=== PATIENT | female | born 1990 | race Caucasian/White ===

== ENCOUNTER 2017-08-14 18:09 | Emergency (ER) | payer OTHER ==
[~2017-08-14] VITALS: Ht 165.1 cm; Wt 75.0 kg
[2017-08-14 18:12] VITALS: BP 177/99; PULSE 97; RESP 16; TEMP 98; O2SAT 100
[2017-08-14] MEDS ORDERED: SODIUM CHLOR 0.9% 1000 ML INJ 1,000 ML IV ONE (18:24)
[2017-08-14] MEDS ORDERED: LISI-515 PO (18:25)
[2017-08-14] MEDS ORDERED: cefTRIAXone INJ 1,000 MG in SODIUM CHLORIDE 0.9% INJ 100 ML IV ONE (18:30)
[2017-08-14] MEDS ORDERED: SODIUM CHLORIDE 0.9% FLUSH 10 ML FLUSH IVF PRN (18:30)
--- NOTE | 2017-08-14 18:35 | PD ---
HPI Chief Complaint: Related Problem Time Seen by Provider: 18:16 Travel History International Travel<30 days: No Contact w/Intl Traveler<30days: No Traveled to known affect area: No History of Present Illness HPI Patient is a 26-year-old female who presents to the emergency room about 3-4 weeks with complaints of vaginal bleeding. Patient reports that she just found out she was this week as she missed her period on Thursday; reports that she took multiple tests which were all positive. Patient reports that today, she noticed vaginal bleeding along with increased clot and lower abdominal cramping. Patient reports concern for possible miscarriage. Patient denies any nausea or vomiting, denies any fever chills, patient with no other complaints. PFSH Past Medical History Hypertension: Yes ?: LMP: LAST MONTH Past Surgical History Surgical History: No Previous Surgery Social History Alcohol Use: No Tobacco Use: No Substance Use: No Allergies-Medications (Allergen,Severity, Reaction): Coded Allergies: No Known Allergies (Unverified , 08/14/17) Reported Meds & Prescriptions Reported Meds & Active Scripts Active Reported Lisinopril 20 Mg Tab 20 Mg PO DAILY Review of Systems General / Constitutional: No: Fever Eyes: No: Visual changes HENT: No: Headaches Cardiovascular: No: Chest Pain or Discomfort Respiratory: No: Shortness of Breath Gastrointestinal: No: Abdominal Pain Genitourinary: Positive: Vaginal Bleeding, No: Dysuria Musculoskeletal: No: Pain Skin: No Rash Neurologic: No: Weakness Psychiatric: No: Depression Endocrine: No: Polydipsia Hematologic/Lymphatic: No: Easy Bruising Physical Exam Narrative GENERAL: mild distress SKIN: Focused skin assessment warm/dry. HEAD: Atraumatic. Normocephalic. EYES: Pupils equal and round. No scleral icterus. No injection or drainage. ENT: No nasal bleeding or discharge. Mucous membranes pink and moist. NECK: Trachea midline. No JVD. CARDIOVASCULAR: Regular rate and rhythm. No murmur appreciated. RESPIRATORY: No accessory muscle use. Clear to auscultation. Breath sounds equal bilaterally. GASTROINTESTINAL: Abdomen soft, non-tender, nondistended. Hepatic and splenic margins not palpable. : pelvic exam performed with RN at bedside, patient with moderate about of blood and clot in vaginal vault, no cmt or adnexal tenderness MUSCULOSKELETAL: No obvious deformities. No clubbing. No cyanosis. No edema. NEUROLOGICAL: Awake and alert. No obvious cranial nerve deficits. Motor grossly within normal limits. Normal speech. PSYCHIATRIC: Appropriate mood and affect; insight and judgment normal. Data Data Last Documented VS Vital Signs Date Time Temp Pulse Resp B/P (MAP) Pulse Ox O2 Delivery O2 Flow Rate FiO2 08/14/17 18:12 98.0 97 16 177/99 (125) 100 Orders Orders Beta Hcg (Quant/Titer) (08/14/17 18:24) Complete Blood Count With Diff (08/14/17 18:) Comprehensive Metabolic Panel (08/14/17 18:) Gc And Chlamydia Pcr (08/14/17 18:24) Complete Rh (08/14/17) Type And Screen (08/14/17) Wet Prep Profile (08/14/17:) Urinalysis - C+S If Indicated (08/14/17 18:24) Iv Access Insert/Monitor (08/14/17 18:) Sodium Chloride 0.9% Flush (Ns Flush) (08/14/17 18:30) Sodium Chlor 0.9% 1000 Ml Inj (Ns 1000 M (08/14/17 18:24) Ed Urine Pregnancytest Poc (08/14/17 18:) MDM Medical Decision Making Medical Screen Exam Complete: Yes Emergency Medical Condition: Yes Medical Record Reviewed: Yes Interpretation(s) Vital Signs Date Time Temp Pulse Resp B/P (MAP) Pulse Ox O2 Delivery O2 Flow Rate FiO2 08/14/17 18:12 98.0 97 16 177/99 (125) 100 Differential Diagnosis Miscarriage, threatened miscarriage Narrative Course During the course of the patients emergency department visit, the patients history, examination, and differential diagnosis were reviewed with the patient. The patient was placed on a night monitor with oximetry and frequent blood pressure monitoring. The patient had an IV access obtained and blood work sent for analysis. The patient was initially provided IV fluids. Patient thinks that her first day of her last than menstrual cycle was about a month ago, she is about 3-4 weeks by dates. On vaginal exam, patient with moderate amount of blood and clots with no CMT or adnexal tenderness. Patient unsure what her blood type is, plan to obtain blood work including hCG quant as this will need to be trended. And Rh status will be obtained. Patient understands importance of trending hCG quant as this will need to be repeated in 48 hours. Patient signed out to care doctor of Dr. Pope at change of shift. Rebecca Benitez DO Aug 14, 2017 18:35
[2017-08-14 18:45] LABS: AUTOMATED NEUTROPHIL # 8.3 TH/MM3 (1.8-7.7); BASOPHIL # 0.1 TH/MM3 (0-0.2); BASOPHIL % 0.9 % (0.0-2.0); EOSINOPHIL # 0.1 TH/MM3 (0-0.4); EOSINOPHIL % 0.9 % (0.0-4.0); HEMATOCRIT 40.8 % (35.0-46.0); HEMOGLOBIN 14.1 GM/DL (11.6-15.3); LYMPH % 15.9 % (9.0-44.0); LYMPHOCYTE # 1.7 TH/MM3 (1.0-4.8); MEAN CELL VOLUME 89.9 FL (80.0-100.0); MEAN CORPUSCULAR HEMOGLOBIN 31.2 PG (27.0-34.0); MEAN CORPUSCULAR HGB CONC 34.7 % (32.0-36.0); MEAN PLATELET VOLUME 8.4 FL (7.0-11.0); MONO % 3.6 % (0.0-8.0); MONOCYTE # 0.4 TH/MM3 (0-0.9); NEUT % 78.7 % (16.0-70.0); PLATELET COUNT 264 TH/MM3 (150-450); RED BLOOD COUNT 4.54 MIL/MM3 (4.00-5.30); RED CELL DISTRIBUTION WIDTH 12.3 % (11.6-17.2); WHITE BLOOD COUNT 10.6 TH/MM3 (4.0-11.0)
[2017-08-14 18:48] LABS: CHLORIDE 106 MEQ/L (98-107); SODIUM (NA) 138 MEQ/L (136-145)
[2017-08-14 18:52] LABS: ALBUMIN 3.8 GM/DL (3.4-5.0); BLOOD UREA NITROGEN 9 MG/DL (7-18); GLUCOSE,RANDOM 93 MG/DL (74-106)
[2017-08-14 18:55] LABS: ALT (GPT) 28 U/L (10-53); AST (GOT) 14 U/L (15-37); CREATININE 0.65 MG/DL (0.50-1.00); GLOMERULAR FILTRATION RATE 112 ML/MIN (>89)
[2017-08-14 18:57] LABS: TOTAL BILIRUBIN ADULT 0.2 MG/DL (0.2-1.0); TOTAL PROTEIN 7.2 GM/DL (6.4-8.2)
[2017-08-14 18:58] LABS: ALKALINE PHOSPHATASE 66 U/L (45-117)
[2017-08-14 19:17] LABS: BILIRUBIN, URINE NEG (NEG); BLOOD, URINE LARGE (NEG); GLUCOSE,URINE NEG (NEG); KETONE, URINE TRACE mg/dL (NEG); NITRITE,URINE NEG (NEG); URINE COLOR YELLOW (YELLW/STRAW); URINE LEUKOCYTE ESTERASE NEG (NEG)
[2017-08-14 19:23] LABS: SQUAMOUS EPITHELIAL CELL URINE 0-5 /hpf (0-5)
--- NOTE | 2017-08-14 19:39 | PD ---
Physical Exam Date Seen by Provider: Aug 14, 2017 Narrative Care was assumed at 7 PM pending quantitative hCG and Rh status. This patient is about 5 weeks by dates. She comes in with vaginal bleeding and cramping. She was found to have heavy vaginal bleeding on pelvic exam. Data Data Last Documented VS Vital Signs Date Time Temp Pulse Resp B/P (MAP) Pulse Ox O2 Delivery O2 Flow Rate FiO2 08/14/17 19:41 82 16 153/89 (110) 99 Room Air 08/14/17 18:12 98.0 Orders Orders Beta Hcg (Quant/Titer) (08/14/17 18:24) Complete Blood Count With Diff (08/14/17 18:24) Comprehensive Metabolic Panel (08/14/17 18:24) Gc And Chlamydia Pcr (08/14/17 18:24) Type And Screen (08/14/17 18:24) Wet Prep Profile (08/14/17 18:24) Urinalysis - C+S If Indicated (08/14/17 18:24) Iv Access Insert/Monitor (08/14/17 18:24) Sodium Chloride 0.9% Flush (Ns Flush) (08/14/17 18:30) Sodium Chlor 0.9% 1000 Ml Inj (Ns 1000 M (08/14/17 18:24) Ed Urine Pregnancytest Poc (08/14/17 18:24) Labs Laboratory Tests Test 08/14/17 18:30 08/14/17 19:09 White Blood Count 10.6 TH/MM3 Red Blood Count 4.54 MIL/MM3 Hemoglobin 14.1 GM/DL Hematocrit 40.8 % Mean Corpuscular Volume 89.9 FL Mean Corpuscular Hemoglobin 31.2 PG Mean Corpuscular Hemoglobin Concent 34.7 % Red Cell Distribution Width 12.3 % Platelet Count 264 TH/MM3 Mean Platelet Volume 8.4 FL Neutrophils (%) (Auto) 78.7 % Lymphocytes (%) (Auto) 15.9 % Monocytes (%) (Auto) 3.6 % Eosinophils (%) (Auto) 0.9 % Basophils (%) (Auto) 0.9 % Neutrophils # (Auto) 8.3 TH/MM3 Lymphocytes # (Auto) 1.7 TH/MM3 Monocytes # (Auto) 0.4 TH/MM3 Eosinophils # (Auto) 0.1 TH/MM3 Basophils # (Auto) 0.1 TH/MM3 CBC Comment DIFF FINAL Differential Comment Clue Cells (Wet Prep) NONE SEEN Vaginal Trichomonas (Wet Prep) NONE SEEN Vaginal Yeast (Wet Prep) NONE SEEN Blood Urea Nitrogen 9 MG/DL Creatinine 0.65 MG/DL Random Glucose 93 MG/DL Total Protein 7.2 GM/DL Albumin 3.8 GM/DL Calcium Level 9.0 MG/DL Alkaline Phosphatase 66 U/L Aspartate Amino Transf (AST/SGOT) 14 U/L Alanine Aminotransferase (ALT/SGPT) 28 U/L Total Bilirubin 0.2 MG/DL Sodium Level 138 MEQ/L Potassium Level 3.4 MEQ/L Chloride Level 106 MEQ/L Carbon Dioxide Level 24.0 MEQ/L Anion Gap 8 MEQ/L Estimat Glomerular Filtration Rate 112 ML/MIN Human Chorionic Gonadotropin, Quant 4505 MIU/ML Urine Color YELLOW Urine Turbidity CLEAR Urine pH 6.0 Urine Specific [place] 1.015 Urine Protein NEG mg/dL Urine Glucose (UA) NEG mg/dL Urine Ketones TRACE mg/dL Urine Occult Blood LARGE Urine Nitrite NEG Urine Bilirubin NEG Urine Urobilinogen 0.2 MG/DL Urine Leukocyte Esterase NEG Urine RBC 20-24 /hpf Urine Squamous Epithelial Cells 0-5 /hpf Microscopic Urinalysis Comment CULT NOT INDICATED MDM Supervised Visit with MEAGHAN: No Differential Diagnosis Differential diagnosis of bleeding in includes but is not limited to physiologic bleeding, spontaneous AB, ectopic , placenta previa Narrative Course This patient presents for the evaluation of heavy bleeding and pelvic cramping in early . CBC & BMP Diagram 08/14/17 18:30 Total Protein 7.2, Albumin 3.8, Calcium Level 9.0, Alkaline Phosphatase 66, Aspartate Amino Transf (AST/SGOT) 14 L, Alanine Aminotransferase (ALT/SGPT) 28, Total Bilirubin 0.2 Quantitative hCG 4505 UA just shows blood. Wet prep is negative. Blood type A+ Diagnosis Primary Impression: Bleeding in early Patient Instructions: General Instructions, Threatened Miscarriage (DC) Additional Instruction: Follow-up in 2 days to have your blood test rechecked. Your level today is 4505. Disposition: 01 DISCHARGE HOME Condition: Stable Sheri Pope MD Aug 14, 2017 19:39
[2017-08-14 19:41] VITALS: BP 153/89; PULSE 82; RESP 16; O2SAT 99
== END 2017-08-14 20:36 | disposition home or self-care (01) ==
LOC: PHED 18:09
DX: O20.9 Hemorrhage in early pregnancy, unspecified (principal); Z3A.01 Less than 8 weeks gestation of pregnancy; Z79.899 Other long term (current) drug therapy
CPT/HCPCS: 80053; 81001; 84702; 84703; 85025; 86850; 86900; 86901; 87210; 87491; 87591; 96360; 99284; J7030

== ENCOUNTER 2017-08-16 17:20 | Emergency (ER) | payer OTHER ==
[~2017-08-16] VITALS: Ht 165.1 cm; Wt 76.0 kg
[~2017-08-16 17:20] MED LIST: LISI-515 PO
[2017-08-16 17:28] VITALS: BP 158/90; PULSE 107; RESP 16; TEMP 98.6; O2SAT 99
--- NOTE | 2017-08-16 18:12 | PD ---
HPI Chief Complaint: Related Problem Time Seen by Provider: 17:52 Travel History International Travel<30 days: No Contact w/Intl Traveler<30days: No Traveled to known affect area: No History of Present Illness HPI Patient presents to the emergency department for repeat beta hCG. Came in to the ER Thursday was found to be with vaginal bleeding. Her hCG was 2004. To return to the ER for repeat beta. Reporting some lower abdominal cramping and that the bleeding has improved. Using approximately 2 pads daily. She denies fever, nausea, vomiting, chest pain, shortness of breath, dizziness. Does report chills and feeling weak. Menstrual period was July 14. PFSH Past Medical History Cardiovascular Problems: Yes (htn on meds) Hypertension: Yes Integumentary: Yes (cyst removal from neck) Influenza Vaccination: No ?: LMP: 07/14/17? Social History Alcohol Use: No Tobacco Use: No Substance Use: No Allergies-Medications (Allergen,Severity, Reaction): Coded Allergies: No Known Allergies (Unverified , 08/16/17) Reported Meds & Prescriptions Reported Meds & Active Scripts Active Reported Lisinopril 20 Mg Tab 20 Mg PO DAILY Review of Systems Except as stated in HPI: all other systems reviewed are Neg Physical Exam Narrative GENERAL: No acute distress. SKIN: Focused skin assessment warm/dry. HEAD: Atraumatic. Normocephalic. EYES: Pupils equal and round. No scleral icterus. No injection or drainage. ENT: No nasal bleeding or discharge. Mucous membranes pink and moist. NECK: Trachea midline. No JVD. CARDIOVASCULAR: Regular rate and rhythm. No murmur appreciated. RESPIRATORY: No accessory muscle use. Clear to auscultation. Breath sounds equal bilaterally. GASTROINTESTINAL: Abdomen soft, non-tender, nondistended. Hepatic and splenic margins not palpable. MUSCULOSKELETAL: No obvious deformities. No clubbing. No cyanosis. No edema. NEUROLOGICAL: Awake and alert. No obvious cranial nerve deficits. Motor grossly within normal limits. Normal speech. PSYCHIATRIC: Appropriate mood and affect; insight and judgment normal. Pelvic: Cervical os closed to fingertip, white discharge and minimal blood present, Data Data Last Documented VS Vital Signs Date Time Temp Pulse Resp B/P (MAP) Pulse Ox O2 Delivery O2 Flow Rate FiO2 08/16/17 17:28 98.6 107 16 158/90 (112) 99 Orders Orders Beta Hcg (Quant/Titer) (08/16/17 17:46) Complete Blood Count With Diff (08/16/17 17:46) Us Pelvis (Ques Pr/Ect)W Trans (08/16/17 ) Sodium Chlor 0.9% 1000 Ml Inj (Ns 1000 M (08/16/17 18:15) Prothrombin Time / Inr (Pt) (08/16/17 18:02) Act Partial Throm Time (Ptt) (08/16/17 18:02) Iv Access Insert/Monitor (08/16/17 18:02) Ecg Monitoring (08/16/17 18:02) Labs Laboratory Tests Test 08/16/17 18:18 White Blood Count 11.0 TH/MM3 Red Blood Count 4.46 MIL/MM3 Hemoglobin 13.7 GM/DL Hematocrit 40.5 % Mean Corpuscular Volume 90.9 FL Mean Corpuscular Hemoglobin 30.8 PG Mean Corpuscular Hemoglobin Concent 33.9 % Red Cell Distribution Width 12.3 % Platelet Count 258 TH/MM3 Mean Platelet Volume 8.6 FL Neutrophils (%) (Auto) 78.4 % Lymphocytes (%) (Auto) 15.1 % Monocytes (%) (Auto) 3.7 % Eosinophils (%) (Auto) 1.6 % Basophils (%) (Auto) 1.2 % Neutrophils # (Auto) 8.6 TH/MM3 Lymphocytes # (Auto) 1.7 TH/MM3 Monocytes # (Auto) 0.4 TH/MM3 Eosinophils # (Auto) 0.2 TH/MM3 Basophils # (Auto) 0.1 TH/MM3 CBC Comment DIFF FINAL Differential Comment Prothrombin Time 10.2 SEC Prothromb Time International Ratio 1.0 RATIO Activated Partial Thromboplast Time 25.4 SEC MDM Medical Decision Making Medical Screen Exam Complete: Yes Emergency Medical Condition: Yes Interpretation(s) Labs: Normal cbc, coags Differential Diagnosis IUP, AB, ectopic Narrative Course She presents to the emergency department with vaginal bleeding and . Since to have repeat beta hCG. Patient placed on a school lunch monitor, IV access obtained, and labs/ultrasound ordered. She is also given 1 L IV normal saline secondary to tachycardia at 107. 1852: HR 93. Awaiting beta HCG and u/s. Patient will be signed out to oncoming attending, Dr. Pack. Deedee Baig MD Aug 16, 2017 18:12
[2017-08-16] MEDS ORDERED: SODIUM CHLOR 0.9% 1000 ML INJ 1,000 ML IV ONE (18:15)
[2017-08-16 18:29] LABS: AUTOMATED NEUTROPHIL # 8.6 TH/MM3 (1.8-7.7); BASOPHIL # 0.1 TH/MM3 (0-0.2); BASOPHIL % 1.2 % (0.0-2.0); EOSINOPHIL # 0.2 TH/MM3 (0-0.4); EOSINOPHIL % 1.6 % (0.0-4.0); HEMATOCRIT 40.5 % (35.0-46.0); HEMOGLOBIN 13.7 GM/DL (11.6-15.3); LYMPH % 15.1 % (9.0-44.0); LYMPHOCYTE # 1.7 TH/MM3 (1.0-4.8); MEAN CELL VOLUME 90.9 FL (80.0-100.0); MEAN CORPUSCULAR HEMOGLOBIN 30.8 PG (27.0-34.0); MEAN CORPUSCULAR HGB CONC 33.9 % (32.0-36.0); MEAN PLATELET VOLUME 8.6 FL (7.0-11.0); MONO % 3.7 % (0.0-8.0); MONOCYTE # 0.4 TH/MM3 (0-0.9); NEUT % 78.4 % (16.0-70.0); PLATELET COUNT 258 TH/MM3 (150-450); RED BLOOD COUNT 4.46 MIL/MM3 (4.00-5.30); RED CELL DISTRIBUTION WIDTH 12.3 % (11.6-17.2)
[2017-08-16 18:44] LABS: PROTHROMBIN TIME - PATIENT 10.2 SEC (9.8-11.6)
[2017-08-16 19:28] VITALS: BP 132/79; PULSE 90; RESP 18; O2SAT 98
--- NOTE | 2017-08-16 20:45 | RADRPT ---
EXAM DATE: 08/16/2017 8:22 PM EDT AGE/SEX: 26 years / Female INDICATIONS: Pelvic pain. CLINICAL DATA: This is the patient's initial encounter. Patient reports that signs and symptoms have been present for 3 days and indicates a pain score of 3/10. MEDICAL/SURGICAL HISTORY: Hypertension. . COMPARISON: No prior exams available for comparison. TECHNIQUE: Real-time ultrasound of the pelvis was performed using an endovaginal transducer. BHC,240 MEASUREMENTS: Uterus:__6.7 x 5.8 x 3.9 cm Endometrial Stripe:__9 mm Right Ovary:__ 3.5 x 3.0 x 2.3 cm Left Ovary:__ 3.8 x 3.0 x 1.4 cm FINDINGS: A gestational sac and yolk sac are seen but no pole is visualized. Gestational age should be 5 weeks 0 days by gestational sac size. Right ovary has complex cyst measuring up to 3.2 x 2.5 x 1.7 cm . Left ovary unremarkable. CONCLUSION: 1. Positive gestational sac and yolk sac without pole identified. Gestational age 5 weeks by g estational sac size. Electronically signed by: Tomy Vela MD 08/16/2017 8:43 PM EDT
--- NOTE | 2017-08-16 20:55 | PD ---
Data Data Last Documented VS Vital Signs Date Time Temp Pulse Resp B/P (MAP) Pulse Ox O2 Delivery O2 Flow Rate FiO2 08/16/17 19:28 90 18 132/79 (96) 98 Room Air 08/16/17 17:28 98.6 Orders Orders Beta Hcg (Quant/Titer) (08/16/17 17:46) Complete Blood Count With Diff (08/16/17 17:46) Us Pelvis (Ques Pr/Ect)W Trans (08/16/17 ) Sodium Chlor 0.9% 1000 Ml Inj (Ns 1000 M (08/16/17 18:15) Prothrombin Time / Inr (Pt) (08/16/17 18:02) Act Partial Throm Time (Ptt) (08/16/17 18:02) Iv Access Insert/Monitor (08/16/17 18:02) Ecg Monitoring (08/16/17 18:02) Labs Laboratory Tests Test 08/16/17 18:18 White Blood Count 11.0 TH/MM3 Red Blood Count 4.46 MIL/MM3 Hemoglobin 13.7 GM/DL Hematocrit 40.5 % Mean Corpuscular Volume 90.9 FL Mean Corpuscular Hemoglobin 30.8 PG Mean Corpuscular Hemoglobin Concent 33.9 % Red Cell Distribution Width 12.3 % Platelet Count 258 TH/MM3 Mean Platelet Volume 8.6 FL Neutrophils (%) (Auto) 78.4 % Lymphocytes (%) (Auto) 15.1 % Monocytes (%) (Auto) 3.7 % Eosinophils (%) (Auto) 1.6 % Basophils (%) (Auto) 1.2 % Neutrophils # (Auto) 8.6 TH/MM3 Lymphocytes # (Auto) 1.7 TH/MM3 Monocytes # (Auto) 0.4 TH/MM3 Eosinophils # (Auto) 0.2 TH/MM3 Basophils # (Auto) 0.1 TH/MM3 CBC Comment DIFF FINAL Differential Comment Prothrombin Time 10.2 SEC Prothromb Time International Ratio 1.0 RATIO Activated Partial Thromboplast Time 25.4 SEC Human Chorionic Gonadotropin, Quant 9240 MIU/ML [facility] Supervised Visit with MEAGHAN: No Narrative Course This is a 26-year-old female who presents to the emergency department in early with some vaginal bleeding. HCG has doubled in the past 2 days and ultrasound confirms a gestational sac of about 5 weeks and a yolk sac with no pole. I think patient is safe to follow-up with her terminal clerk as an outpatient. Diagnosis Primary Impression: Intrauterine Patient Instructions: General Instructions Additional Instruction: You have been diagnosed with a threatened miscarriage. Many women who have vaginal bleeding in early go on to have normal pregnancies. However some women that have vaginal bleeding will have a miscarriage and it is important to followup with your terminal clerk. If you develop severe abdominal pain, fever, persistent vomiting or inability to eat, heavy vaginal bleeding using more than one pad an hour, lightheadedness , dizziness, chest pain or shortness of breath return to the emergency department immediately. Followup with your terminal clerk as soon as possible. Take Tylenol as needed for pain. Med/Other Pt SpecificInfo: No Change to Meds Disposition: 01 DISCHARGE HOME Condition: Stable Joelle Pack MD Aug 16, 2017 20:55
[2017-08-16] MEDS ORDERED: PREN1TAB63 PO (21:05)
[2017-08-16 21:22] VITALS: BP 134/76; PULSE 82; RESP 18; O2SAT 98
== END 2017-08-16 21:24 | disposition home or self-care (01) ==
LOC: PHED 17:20
DX: O20.0 Threatened abortion (principal); O16.1 Unspecified maternal hypertension, first trimester; Z3A.01 Less than 8 weeks gestation of pregnancy
CPT/HCPCS: 76700; 76817; 84702; 85025; 85610; 85730; 96360; 99284; J7030

== ENCOUNTER 2018-04-07 10:24 | Inpatient (IN) ==
[2018-04-07] MEDS ORDERED: Oxytocin 30 Units/500ml Premix 30 UNITS/500 ML BAG IV.SIG ONE (11:06)
[2018-04-07] MEDS ORDERED: Penicillin G Potassium Inj 5,000,000 UNIT in Sodium Chloride 0.9% Inj 100 ML IV.SIG ONE (11:06)
[2018-04-07] MEDS ORDERED: Sodium Chlor 0.9% Inj 500 ML IV.SIG PRN (11:06)
[2018-04-07] MEDS ORDERED: Naloxone Inj 0.4 MG/ML Vial IV.PUSH PRN (11:06)
[2018-04-07] MEDS ORDERED: fentaNYL Citrate Inj 100 MCG/2 ML Ampul IV.PUSH PRN (11:06)
[2018-04-07] MEDS ORDERED: Sod Chloride 0.9% Inj 1,000 ML IV.CONT PRN (11:06)
[2018-04-07] MEDS ORDERED: Sod Chloride 0.9% Inj 1,000 ML IRRIGATION SCH (11:15)
[2018-04-07] MEDS ORDERED: Citric Acid/Sodium Citrate Liq 30 ML UDC PO SCH (11:15)
[2018-04-07] MEDS ORDERED: Penicillin G Potassium Inj 2,500,000 UNIT in Sodium Chlor 0.9% Inj 100 ML IV.SIG SCH (12:00)
[2018-04-07 12:04] LABS: Baso % (Auto) 0.2 % (0.0-2.0); Eos % (Auto) 0.3 % (0.0-4.0); Hematocrit 40.7 % (35.0-46.0); Hemoglobin 13.7 gm/dL (11.6-15.3); Lymph # (Auto) 1.4 th/mm3 (1.0-4.8); Lymph % (Auto) 12.2 % (9.0-44.0); Mean Corpuscular HGB Conc 33.6 % (32.0-36.0); Mean Corpuscular Hemoglobin 30.2 pg (27.0-34.0); Mean Corpuscular Volume 89.7 fL (80.0-100.0); Mono # (Auto) 0.6 th/mm3 (0.0-0.9); Mono % (Auto) 5.7 % (0.0-8.0); Neut # (Auto) 9.1 th/mm3 (1.8-7.7); Neut % (Auto) 81.6 % (16.0-70.0); Platelet Count 230 th/mm3 (150-450); Red Blood Count 4.53 mil/mm3 (4.00-5.30); Red Cell Distribution Width 13.8 % (11.6-17.2); White Blood Count 11.1 th/mm3 (4.0-11.0)
[2018-04-07 12:20] LABS: Alanine Aminotransferase 22 U/L (10-53); Albumin 2.8 g/dL (3.4-5.0); Anion Gap 11 meq/L (5-15); Aspartate Aminotransferase 17 U/L (15-37); Blood Urea Nitrogen 8 mg/dL (7-18); Calcium 9.2 mg/dL (8.5-10.1); Carbon Dioxide 21.9 meq/L (21.0-32.0); Chloride 106 meq/L (98-107); Glomerular Filtration Rate Greater Than 89 mL/min (>89); Glucose,Random 78 mg/dL (74-106); Potassium 4.1 meq/L (3.5-5.1); Sodium 139 meq/L (136-145); Uric Acid 3.9 mg/dl (2.6-6.0)
[2018-04-07 12:23] LABS: Alkaline Phosphatase 221 U/L (45-117)
[2018-04-07 12:36] LABS: Bacteria,Urine Occasional /hpf; Bilirubin,Urine Negative (Negative); Clarity,Urine Clear (Clear); Color,Urine Straw (Yellw/Straw); Glucose,Urine (UA) Negative (Negative); Leukocyte Esterase,Urine Negative (Negative); Mucus,Urine Few /lpf (Occasional); Nitrite,Urine Negative (Negative); Protein/Creatinine Ratio,Urine 0.42 (0.00-0.14); Specific Gravity,Urine 1.005 (1.002-1.035); Squamous Epithelial Cell,Urine 8 /hpf (0-5); Total Protein,Urine Random 15.9 mg/dL (0-11.8)
--- NOTE | 2018-04-07 14:31 | P.HPOB ---
History of Present Illness Service: ob Primary Care Physician: No Primary Care Physician Chief Complaint: iol for justina History of Present Illness: 27 yo G1 with iup at 39 wk by 11 wk u/s (not c/w lmp) being admitted for iol for justina. She transferred care from [facility] to [facility] at 20 weeks[address] has seen [address] Arriola for majority of her care. c/b CHTN, prior aldomet use, LSIL, Morbid obesity. She presented for a routine OB visit and was noted to have BP of 150/100, 160/ 100, subsequent repeat was 138/84. Discussed risk of pre-eclampsia and indication for delivery today. She denies visual changes, headaches, or ruq pain. Has taken bp at home and was normal. Sh ehas good movements, no reg contractions, no lof/vb. She has gained 56 pounds from pre- weight. 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 This includes certification that hospital inpatient services are reasonable and necessary and in the case of services not specified as inpatient-only under 42 CFR 419.22(n), that they are appropriately provided as inpatient services in accordance to with the 2-midnight benchmark under 43 CFR 412.3(e) Estimated Total Length of Stay (Days): 3 Plans for Post Hospital Care: Home Review of Systems All other systems reviewed negative except as stated [facility] - Social History I have reviewed the patient's Social History: Yes - Tobacco History Second Hand Smoke Exposure: No Tobacco Use In Past 30 Days: No Smoking Status: Never smoker - Travel History Recent Travel in the [place] Within the Last 8 Weeks: No Recent Travel Out of the Country Within the Last 8 Weeks: No - Immunization History Tetanus Immunization: Unable to Assess Hx Influenza Vaccine This Season: Yes Medications and Allergies Active Medications: Active Medications Citric Acid/Sodium Citrate (Sodium Citrate/Citric Acid Liq) 30 ml PO EXPORT ADMINISTRATOR [facility] Stop: 04/11/18 11:14 Fentanyl Citrate (Fentanyl Inj) 50 mcg IV.PUSH Q1H PRN PRN Reason: Pain Scale 3 - 5 Fentanyl Citrate (Fentanyl Inj) 100 mcg IV.PUSH Q1H PRN PRN Reason: PAIN SCALE 6 TO 10 Lactated Ringer's (Lr 1000 Ml Inj) 1,000 mls @ 125 mls/hr IV.CONT .Q8H ROBERTA Lactated Ringer's (Lr 1000 Ml Inj) 1,000 mls @ 3,000 mls/hr IV.SIG UNSCH PRN PRN Reason: compromise or epidural Sodium Chloride (Ns Inj) 500 mls @ 1,000 mls/hr IV.SIG UNSCH PRN PRN Reason: SEE LABEL COMMENTS Sodium Chloride (Ns Inj) 1,000 mls @ 100 mls/hr IV.CONT .Q10H PRN PRN Reason: SEE LABEL COMMENTS Sodium Chloride (Ns Inj) 1,000 mls @ 0 mls/hr IRRIGATION .Q0M ROBERTA Stop: 04/08/18 11:14 Penicillin G Potassium 2,500, (000 unit/ Sodium Chloride) 100 mls @ 200 mls/hr IV.SIG Q4H ROBERTA Lidocaine HCl (Xylocaine 1% Inj) 0.1 ml I-DERMAL PRN PRN PRN Reason: For IV start Stop: 04/10/18 11:05 Lidocaine HCl (Xylocaine 1% Inj) 10 ml INFILTRATN PRN PRN PRN Reason: For episiotomy repair Stop: 04/09/18 11:05 Mineral Oil (Muri-Lube Oil) 10 ml TOPICAL PRN PRN PRN Reason: PRN perineal massage Naloxone HCl (Narcan Inj) 0.1 mg IV.PUSH Q2M PRN PRN Reason: for opiate reversal Sodium Chloride (Ns Flush) 2 ml IV.FLUSH BID [facility] Sodium Chloride (Ns Flush) 2 ml IV.FLUSH PRN PRN PRN Reason: FLUSH AFTER USING IV ACCESS Allergies Allergy/AdvReac Type Severity Reaction Status Date / Time No Known Allergies Allergy Unverified 04/07/18 12:05 Home Medications Medication Instructions Recorded Confirmed Type PNV cmb#[id number] fumarate-FA 1 tab PO DAILY 04/07/18 04/07/18 History [] Exam Vital signs: Vital Signs 04/07/18 10:53 04/07/18 11:15 04/07/18 13:08 Temperature 98.1 F Pulse Rate 95 H Respiratory Rate 18 18 Blood Pressure 155/106 H 152/95 H 04/07/18 13:15 04/07/18 13:52 Temperature Pulse Rate 18 L 83 Respiratory Rate 18 Blood Pressure 152/92 H Intake & Output 04/06/18 04/07/18 04/07/18 18:59 06:59 18:59 Weight 97.522 kg Other: Weight On Admission 97.522 kg - Constitutional no acute distress - Routine HEENT Exam Head: Present: normocephalic Eye: Present: EOMI ENT: Present: mucous membranes moist - Routine Neck Exam Present: supple, full ROM - Routine Chest/Breast/Axilla Exam Chest wall: Absent: tenderness - Routine Respiratory Exam Present: CTA bilaterally. Absent: accessory muscle use - Routine Cardiovascular Exam Present: RRR, S1, S2 - Routine Abdominal Exam Present: soft Comments: fundal height 42 - Routine Exam Comments: /3 - Routine Extremities Exam Present: edema, pulses intact. Absent: cyanosis, clubbing - Routine Skin Exam Present: intact - Routine Neurological Exam Present: alert, oriented X3 Results - Labs CBC & Chem 7: 04/07/18 11:30 04/07/18 11:30 Labs: Laboratory Results - last 24 hr 04/07/18 04/07/18 04/07/18 11:30 11:30 11:30 WBC 11.1 H RBC 4.53 Hgb 13.7 Hct 40.7 MCV 89.7 MCH 30.2 MCHC 33.6 RDW 13.8 Plt Count 230 MPV 10.0 Neut % (Auto) 81.6 H Lymph % (Auto) 12.2 Yancey % (Auto) 5.7 Eos % (Auto) 0.3 Baso % (Auto) 0.2 Neut # (Auto) 9.1 H Lymph # (Auto) 1.4 Yancey # (Auto) 0.6 Eos # (Auto) 0.0 Baso # (Auto) 0.0 WBC Differential . Differential Comment Auto diff final Sodium 139 Potassium 4.1 Chloride 106 Carbon Dioxide 21.9 Anion Gap 11 BUN 8 Creatinine 0.63 Estimated GFR Greater than 89 Random Glucose 78 Uric Acid 3.9 Calcium 9.2 Total Bilirubin 0.3 AST 17 ALT 22 Alkaline Phosphatase 221 H Total Protein 7.0 Albumin 2.8 L Urine Color Urine Clarity Urine pH Ur Specific Clarinda Urine Protein Urine Glucose (UA) Urine Ketones Urine Occult Blood Urine Nitrate Urine Bilirubin Urine Urobilinogen Ur Leukocyte Esterase Urine RBC Urine WBC Ur Squamous Epith Cells Urine Bacteria Urine Mucus Micro UA Comment Ur Microscopic Review Urine Culture Comments Ur Random Creatinine U Random Total Protein Protein/Creatinin Ratio Blood Type A Positive 04/07/18 04/07/18 11:30 11:30 WBC RBC Hgb Hct MCV MCH MCHC RDW Plt Count MPV Neut % (Auto) Lymph % (Auto) Yancey % (Auto) Eos % (Auto) Baso % (Auto) Neut # (Auto) Lymph # (Auto) Yancey # (Auto) Eos # (Auto) Baso # (Auto) WBC Differential Differential Comment Sodium Potassium Chloride Carbon Dioxide Anion Gap BUN Creatinine Estimated GFR Random Glucose Uric Acid Calcium Total Bilirubin AST ALT Alkaline Phosphatase Total Protein Albumin Urine Color Straw Urine Clarity Clear Urine pH 7.0 Ur Specific Clarinda 1.005 Urine Protein Negative Urine Glucose (UA) Negative Urine Ketones Negative Urine Occult Blood Small H Urine Nitrate Negative Urine Bilirubin Negative Urine Urobilinogen Less than 2 Ur Leukocyte Esterase Negative Urine RBC Less than 1 Urine WBC 1 Ur Squamous Epith Cells 8 Urine Bacteria Occasional H Urine Mucus Few H Micro UA Comment Culture not ind Ur Microscopic Review Not Reportable Urine Culture Comments Culture not ind Ur Random Creatinine 38 U Random Total Protein 15.9 H Protein/Creatinin Ratio 0.42 H Blood Type Group B Strep: Positive Caprini VTE Risk Assessment Caprini VTE Risk Assessment: No/Low Risk (score <= 1) Caprini Risk Assessment Model: Point Value = 1 Point Value = 2 Point Value = 3 Point Value = 5 Age 41-60 Minor surgery BMI > 25 kg/m2 Swollen legs Varicose veins or History of unexplained or recurrent spontaneous Oral contraceptives or hormone replacement Sepsis (< 1 month) Serious lung disease, including pneumonia (< 1 month) Abnormal pulmonary function Acute myocardial infarction Congestive heart failure (< 1 month) History of inflammatory bowel disease Medical patient at bed rest Age 61-74 Arthroscopic surgery Major open surgery (> 45 min) Laparoscopic surgery (> 45 min) Malignancy Confined to bed (> 72 hours) Immobilizing plaster cast Central venous access Age >= 75 History of VTE Family history of VTE Factor V Leiden Prothrombin [id number] Lupus anticoagulant Anticardiolipin antibodies Elevated serum homocysteine Heparin-induced thrombocytopenia Other congenital or acquired thrombophilia Stroke (< 1 month) Elective arthroplasty Hip, pelvis, or leg fracture Acute spinal cord injury (< 1 month) Prophylaxis Regimen: Total Risk Factor Score Risk Level Prophylaxis Regimen 0-1 Low Early ambulation 2 Moderate Order ONE of the following: *Sequential Compression Device (SCD) *Heparin 5000 units SQ BID 3-4 Higher Order ONE of the following medications: *Heparin 5000 units SQ TID *Enoxaparin/Lovenox 40 mg SQ daily (WT < 150 kg, CrCl > 30 mL/min) *Enoxaparin/Lovenox 30 mg SQ daily (WT < 150 kg, CrCl > 10-29 mL/min) *Enoxaparin/Lovenox 30 mg SQ BID (WT < 150 kg, CrCl > 30 mL/min) AND/OR *Sequential Compression Device (SCD) 5 or more Highest Order ONE of the following medications: *Heparin 5000 units SQ TID (Preferred with Epidurals) *Enoxaparin/Lovenox 40 mg SQ daily (WT < 150 kg, CrCl > 30 mL/min) *Enoxaparin/Lovenox 30 mg SQ daily (WT < 150 kg, CrCl > 10-29 mL/min) *Enoxaparin/Lovenox 30 mg SQ BID (WT < 150 kg, CrCl > 30 mL/min) AND *Sequential Compression Device (SCD) Assessment and Plan - Diagnosis (1) Pre-eclampsia superimposed on chronic hypertension Code(s): O11.9 - Pre-existing hypertension with pre-eclampsia, unspecified trimester Status: Acute (2) Obesity (BMI 35.0-39.9 without comorbidity) Code(s): E66.9 - Obesity, unspecified Status: Acute (3) Rubella non-immune status, antepartum Code(s): O99.89 - Other specified diseases and conditions complicating , childbirth and the puerperium; Z28.3 - Underimmunization status Status: Acute (4) GBS (group B Streptococcus carrier), +RV culture, currently Code(s): O99.820 - Streptococcus B carrier state complicating Status : Acute (5) LGSIL on Pap smear of cervix Code(s): R87.612 - Low grade squamous intraepithelial lesion on cytologic smear of cervix (LGSIL) Status: Acute - Plan 27 yo G1 with iup at 39 wk by 11 wk u/s being admitted for iol 1) IOL- pt aware that induction can be a long process. IF there is any distress, arrest of dilation or descent, or any signs of severity from justina that would necessitate immediate delivery, she would need a cd. will start iol with cervidil. 2) JUSTINA- elevated bp, Pr:Cr 0.4 rules her in for chtn with justina. If signs of severity develop, will need to start magnesium 3) GBS + pcn during active labor 4) Fetus- male, cephalic, approx 8-8.5 lb by shaw, no recent growth scan. Shoulder dystocia precautions. Discharge Planning: home on ppd 2-3
[2018-04-07] MEDS: Penicillin G Potassium Inj 2,500,000 UNIT in Sodium Chlor 0.9% Inj 100 ML IV.SIG SCH (23:32)
[2018-04-08] MEDS: fentaNYL Citrate Inj 100 MCG/2 ML Ampul IV.PUSH PRN ×2 (00:49→04:56)
[2018-04-08] MEDS: Penicillin G Potassium Inj 2,500,000 UNIT in Sodium Chlor 0.9% Inj 100 ML IV.SIG SCH ×3 (03:40→11:27)
[2018-04-08] MEDS ORDERED: fentaNYL 2MCG-Bupiv 0.125% Epi 150 ML EPIDURAL ONE (07:16)
[2018-04-08] MEDS ORDERED: fentaNYL 2MCG-Bupiv 0.125% Epi 150 ML EPIDURAL PRN (08:17)
[2018-04-08] MEDS ORDERED: fentaNYL Citrate Inj 100 MCG/2 ML Ampul EPIDURAL ONE (08:17)
[2018-04-08] MEDS ORDERED: Sodium Chlor 0.9% Inj 10 ML ONE (09:59)
[2018-04-08] MEDS ORDERED: Oxytocin 30 Units/500ml Premix 30 UNITS/500 ML BAG ONE ×2 (09:59→10:17)
[2018-04-08] MEDS ORDERED: Lidocaine PF 1% Inj 5 ML Vial ONE (09:59)
--- NOTE | 2018-04-08 10:01 | P.OBLABOR ---
Subjective Interval history: comfortable with epidural BPs good srom at 430 am Objective Vital Signs: Vital Signs - 8 hr 04/08/18 02:25 04/08/18 02:55 04/08/18 03:01 Temperature Pulse Rate 85 82 Respiratory Rate 16 16 Blood Pressure 149/73 H 133/69 04/08/18 03:25 04/08/18 03:50 04/08/18 04:25 Temperature 98.1 F Pulse Rate 84 Respiratory Rate 16 16 16 Blood Pressure 137/77 04/08/18 04:53 04/08/18 05:24 04/08/18 05:52 Temperature Pulse Rate 97 H Respiratory Rate 16 16 16 Blood Pressure 156/90 H 04/08/18 06:25 04/08/18 06:48 04/08/18 07:40 Temperature Pulse Rate 110 H Respiratory Rate 16 16 Blood Pressure 149/79 H 04/08/18 07:45 04/08/18 07:47 04/08/18 07:50 Temperature 98.5 F Pulse Rate 91 H 96 H Respiratory Rate 18 Blood Pressure 160/89 H 04/08/18 07:51 04/08/18 07:55 04/08/18 08:01 Temperature Pulse Rate 96 H 93 H 84 Respiratory Rate Blood Pressure 150/73 H 147/76 H 140/73 04/08/18 08:05 Temperature Pulse Rate 84 Respiratory Rate Blood Pressure Objective: Pelvic Exam: strip category one /-1 pelvix clinically adequate EFW 7 pounds Patient Started Active Labor: Yes Medical Induction of Labor: Yes Artificial Rupture of Membrane: No Assessment and Plan - Diagnosis (1) Pre-eclampsia superimposed on chronic hypertension Code(s): O11.9 - Pre-existing hypertension with pre-eclampsia, unspecified trimester Status: Acute (2) Obesity (BMI 35.0-39.9 without comorbidity) Code(s): E66.9 - Obesity, unspecified Status: Acute (3) Rubella non-immune status, antepartum Code(s): O99.89 - Other specified diseases and conditions complicating , childbirth and the puerperium; Z28.3 - Underimmunization status Status: Acute (4) GBS (group B Streptococcus carrier), +RV culture, currently Code(s): O99.820 - Streptococcus B carrier state complicating Status : Acute (5) LGSIL on Pap smear of cervix Code(s): R87.612 - Low grade squamous intraepithelial lesion on cytologic smear of cervix (LGSIL) Status: Acute - Plan 27 yo G1 with iup at 39 wk by 11 wk u/s being admitted for iol 1) IOL- pt aware that induction can be a long process. IF there is any distress, arrest of dilation or descent, or any signs of severity from justina that would necessitate immediate delivery, she would need a cd. will start iol with cervidil. 2) JUSTINA- elevated bp, Pr:Cr 0.4 rules her in for chtn with justina. If signs of severity develop, will need to start magnesium 3) GBS + pcn during active labor 4) Fetus- male, cephalic, approx 8-8.5 lb by shaw, no recent growth scan. Shoulder dystocia precautions. Discharge Planning: home on ppd 2-3
--- NOTE | 2018-04-08 14:47 | P.OBDELI ---
Patient Started Active Labor: Yes Medical Induction of Labor: Yes Artificial Rupture of Membrane: No Anesthesia: Epidural Episiotomy: none Vaginal Delivery: Normal, Vacuum (tachycardia) Presentation: Occiput anterior Nuchal Cord: None Delayed Cord Clamping (45 sec): Yes Placenta: Spontaneous delivery, Intact, 3 vessel cord Laceration: None Estimated blood loss (mL): 200 Infant: Female Infant Female A Delivery Date: 04/08/18 Delivery Time: 14:46 score (1 min): 8 score (5 min): 9
[2018-04-08] MEDS ORDERED: Oxytocin 30 Units/500ml Premix 30 UNITS/500 ML BAG IV.CONT PRN (14:53)
[2018-04-08] MEDS ORDERED: Witch Hazel 50%/Glyderin 12.5% 40 Pad Jar RECTAL PRN (14:53)
[2018-04-08] MEDS ORDERED: Bisacodyl 10 MG Supp RECTAL PRN (14:53)
[2018-04-08] MEDS ORDERED: Benzocaine 20% Top Spray 60 ML Can TOPICAL PRN (14:53)
[2018-04-08] MEDS ORDERED: Naloxone Inj 0.4 MG/ML Vial IV.PUSH PRN (14:53)
[2018-04-08] MEDS: Acetaminophen 325 MG Tablet PO PRN (15:13)
[2018-04-08] MEDS ORDERED: Measles/Mumps/Rubella Vaccine Inj 0.5 ML Vial SQ ONE (16:00)
[2018-04-08] MEDS ORDERED: Diphtheria/Tetanus/Pertussis Vaccine Inj 0.5 ML Syringe IM ONE (16:00)
[2018-04-08] MEDS ORDERED: Zolpidem Tartrate 5 MG Tablet PO PRN (21:00)
[2018-04-08] MEDS: Senna/Docusate Sodium 8.6/50 MG Tablet PO SCH (22:41)
[2018-04-09 04:56] LABS: Baso % (Auto) 0.3 % (0.0-2.0); Eos % (Auto) 0.4 % (0.0-4.0); Hematocrit 34.3 % (35.0-46.0); Hemoglobin 11.5 gm/dL (11.6-15.3); Lymph # (Auto) 1.2 th/mm3 (1.0-4.8); Lymph % (Auto) 10.4 % (9.0-44.0); Mean Corpuscular HGB Conc 33.6 % (32.0-36.0); Mean Corpuscular Hemoglobin 29.8 pg (27.0-34.0); Mean Corpuscular Volume 88.9 fL (80.0-100.0); Mono # (Auto) 0.9 th/mm3 (0.0-0.9); Mono % (Auto) 7.6 % (0.0-8.0); Neut # (Auto) 9.6 th/mm3 (1.8-7.7); Neut % (Auto) 81.3 % (16.0-70.0); Platelet Count 192 th/mm3 (150-450); Red Blood Count 3.85 mil/mm3 (4.00-5.30); Red Cell Distribution Width 14.1 % (11.6-17.2); White Blood Count 11.8 th/mm3 (4.0-11.0)
[2018-04-09 05:48] LABS: Albumin 2.1 g/dL (3.4-5.0); Total Protein 5.3 g/dL (6.4-8.2)
--- NOTE | 2018-04-09 07:35 | P.PNOB ---
Subjective Post day: 1 Interval history: Doing well, ambulating without difficulty, voiding spontaneously, tolerating regular diet, vaginal bleeding less than menses. No headaches, blurry vision or epigastric pain. Objective Vital Signs/I&O: Vital Signs 04/08/18 07:40 04/08/18 07:45 04/08/18 07:47 Temperature 98.5 F Pulse Rate 110 H 91 H Respiratory Rate 18 Blood Pressure 149/79 H 160/89 H 04/08/18 07:50 04/08/18 07:51 04/08/18 07:55 Temperature Pulse Rate 96 H 96 H 93 H Respiratory Rate Blood Pressure 150/73 H 147/76 H 04/08/18 08:01 04/08/18 08:05 04/08/18 08:40 Temperature Pulse Rate 84 84 87 Respiratory Rate Blood Pressure 140/73 143/78 H 04/08/18 09:40 04/08/18 09:55 04/08/18 10:00 Temperature 98.6 F Pulse Rate 105 H 103 H 102 H Respiratory Rate 16 Blood Pressure 133/77 131/78 150/93 H 04/08/18 10:15 04/08/18 10:25 04/08/18 10:30 Temperature Pulse Rate 102 H 107 H Respiratory Rate 17 Blood Pressure 142/83 H 04/08/18 10:46 04/08/18 10:55 04/08/18 11:00 Temperature 98.0 F Pulse Rate 106 H 101 H 90 Respiratory Rate 18 Blood Pressure 149/94 H 04/08/18 11:05 04/08/18 11:15 04/08/18 11:20 Temperature Pulse Rate 103 H 90 90 Respiratory Rate Blood Pressure 148/96 H 145/90 H 04/08/18 11:25 04/08/18 11:29 04/08/18 11:35 Temperature Pulse Rate 97 H 104 H Respiratory Rate 17 Blood Pressure 141/86 H 04/08/18 11:40 04/08/18 11:43 04/08/18 12:31 Temperature Pulse Rate 109 H 102 H Respiratory Rate 18 Blood Pressure 135/71 04/08/18 12:35 04/08/18 12:55 04/08/18 13:18 Temperature 99.1 F Pulse Rate 114 H 173 H Respiratory Rate Blood Pressure 170/73 H 04/08/18 13:25 04/08/18 13:45 04/08/18 14:00 Temperature Pulse Rate 133 H 126 H Respiratory Rate 17 18 Blood Pressure 143/72 H 04/08/18 14:15 04/08/18 14:30 04/08/18 14:45 Temperature 100.2 F H Pulse Rate 121 H 118 H 117 H Respiratory Rate 17 Blood Pressure 139/72 140/81 140/82 04/08/18 15:00 04/08/18 15:30 04/08/18 16:20 Temperature 98.1 F 98.1 F Pulse Rate 108 H 92 H Respiratory Rate 18 20 Blood Pressure 166/100 H 167/101 H 04/08/18 17:22 04/08/18 18:10 04/08/18 19:54 Temperature 98.2 F Pulse Rate 94 H 101 H 106 H Respiratory Rate 20 Blood Pressure 155/91 H 152/81 H 153/94 H 04/08/18 23:59 04/09/18 03:00 04/09/18 03:05 Temperature 98.0 F 98.1 F Pulse Rate 100 H 88 Respiratory Rate 20 18 Blood Pressure 152/90 H 155/97 H 04/09/18 05:30 Temperature Pulse Rate 88 Respiratory Rate Blood Pressure 153/93 H Intake & Output 04/08/18 04/09/18 04/09/18 18:59 06:59 18:59 Intake Total 100 / 100 Balance 100 / 100 Intake: IV 100 / 100 Pfizerpen-G Inj 2,500,000 UNIT 100 / 100 In NS Inj 100 ML @ 200 mls/hr IV.SIG Q4H [facility] Rx#:[id number] Result Diagrams: 04/09/18 04:50 04/07/18 11:30 Objective Remarks: GENERAL: Well-nourished, well-developed patient. CARDIOVASCULAR: Regular rate and rhythm without murmurs, gallops, or rubs. RESPIRATORY: Breath sounds equal bilaterally. No accessory muscle use. ABDOMEN/GI: Abdomen soft, non-tender. Fundus: Firm, non-tender at umbilicus. GENITOURINARY: Light to moderate bleeding. EXTREMITIES: No cyanosis or edema, non-tender, without signs of DVT. Medications and IVs: Active Medications Acetaminophen (Tylenol) 650 mg PO Q4H PRN PRN Reason: PAIN SCALE 1 TO 2 Last Admin: 04/08/18 15:13 Dose: 650 mg Al Hydroxide/Mg Hydroxide (Milk Of Magnesia Liq) 30 ml PO Q12H PRN PRN Reason: Mild Constipation Benzocaine (Americaine 20% [place]) 1 spray TOPICAL Q4H PRN PRN Reason: For Perineum Discomfort Last Admin: 04/08/18 22:42 Dose: 1 spray Bisacodyl (Dulcolax Supp) 10 mg RECTAL DAILY PRN PRN Reason: SEVERE CONSITIPATION Citric Acid/Sodium Citrate (Sodium Citrate/Citric Acid Liq) 30 ml PO COLLECTIONS ASSOCIATE [facility] Stop: 04/11/18 11:14 Ephedrine Sulfate (Ephedrine/Ns Syringe) 10 mg IV.PUSH UNSCH PRN PRN Reason: SEE LABEL COMMENTS Stop: 04/09/18 08:17 Last Admin: 04/08/18 11:13 Dose: 10 mg Fentanyl Citrate (Fentanyl Inj) 50 mcg IV.PUSH Q1H PRN PRN Reason: Pain Scale 3 - 5 Last Admin: 04/07/18 22:42 Dose: 50 mcg Fentanyl Citrate (Fentanyl Inj) 100 mcg IV.PUSH Q1H PRN PRN Reason: PAIN SCALE 6 TO 10 Last Admin: 04/08/18 04:56 Dose: 100 mcg Lactated Ringer's (Lr 1000 Ml Inj) 1,000 mls @ 125 mls/hr IV.CONT .Q8H [facility] Last Admin: 04/09/18 04:25 Dose: Not Given Lactated Ringer's (Lr 1000 Ml Inj) 1,000 mls @ 3,000 mls/hr IV.SIG UNSCH PRN PRN Reason: compromise or epidural Last Admin: 04/08/18 07:34 Dose: 3,000 mls/hr Sodium Chloride (Ns Inj) 500 mls @ 1,000 mls/hr IV.SIG UNSCH PRN PRN Reason: SEE LABEL COMMENTS Sodium Chloride (Ns Inj) 1,000 mls @ 100 mls/hr IV.CONT .Q10H PRN PRN Reason: SEE LABEL COMMENTS Penicillin G Potassium 2,500, (000 unit/ Sodium Chloride) 100 mls @ 200 mls/hr IV.SIG Q4H [facility] Last Admin: 04/08/18 11:27 Dose: 200 mls/hr Fentanyl/Bupivacaine/Sodium Chlor (Fentanyl 2 Mcg-Bupiv 0.125% Epi) 150 mls @ 12 mls/hr EPIDURAL PRN PRN PRN Reason: for Labor Pain Last Admin: 04/08/18 11:14 Dose: 12 mls/hr Oxytocin (Pitocin 30 Units/Ns 500 Ml Premix) 30 units in 500 mls @ 100 mls/hr IV.CONT UNSCH PRN PRN Reason: Heavy bleeding Ibuprofen (Motrin) 800 mg PO Q8H PRN PRN Reason: For Cramping Last Admin: 04/09/18 03:01 Dose: 800 mg Lactulose (Lactulose Liq) 30 ml PO DAILY PRN PRN Reason: SEVERE CONSITIPATION Lidocaine HCl (Xylocaine 1% Inj) 0.1 ml I-DERMAL PRN PRN PRN Reason: For IV start Stop: 04/10/18 11:05 Lidocaine HCl (Xylocaine 1% Inj) 10 ml INFILTRATN PRN PRN PRN Reason: For episiotomy repair Stop: 04/09/18 11:05 Mineral Oil (Muri-Lube Oil) 10 ml TOPICAL PRN PRN PRN Reason: PRN perineal massage Miscellaneous Information (Misc Information) 1 each OTHER UNSCH PRN PRN Reason: SEE LABEL COMMENTS Stop: 04/09/18 08:17 Naloxone HCl (Narcan Inj) 0.1 mg IV.PUSH Q2M PRN PRN Reason: for opiate reversal Naloxone HCl (Narcan Inj) 0.1 mg IV.PUSH Q2M PRN PRN Reason: for opiate reversal Nifedipine (Procardia Xl) 30 mg PO DAILY [facility] Ondansetron HCl (Zofran Odt) 4 mg PO Q6H PRN PRN Reason: NAUSEA OR VOMITING Senna/Docusate Sodium (Lillian-Colace) 1 tab PO BID ROBERTA Last Admin: 04/08/18 22:41 Dose: 1 tab Sennosides (Senokot) 17.2 mg PO Q12H PRN PRN Reason: Moderate Constipation Sodium Chloride (Ns Flush) 2 ml IV.FLUSH BID ROBERTA Sodium Chloride (Ns Flush) 2 ml IV.FLUSH PRN PRN PRN Reason: FLUSH AFTER USING IV ACCESS Witch Klaudia/Glycerin (Tucks Pads) 1 applicatio RECTAL QID PRN PRN Reason: HEMORRHOIDS Last Admin: 04/08/18 22:42 Dose: 1 applicatio Zolpidem Tartrate (Ambien) 5 mg PO HS PRN PRN Reason: SLEEP Assessment and Plan - Diagnosis (1) Pre-eclampsia superimposed on chronic hypertension Code(s): O11.9 - Pre-existing hypertension with pre-eclampsia, unspecified trimester Status: Acute (2) Obesity (BMI 35.0-39.9 without comorbidity) Code(s): E66.9 - Obesity, unspecified Status: Acute (3) Rubella non-immune status, antepartum Code(s): O99.89 - Other specified diseases and conditions complicating , childbirth and the puerperium; Z28.3 - Underimmunization status Status: Acute (4) GBS (group B Streptococcus carrier), +RV culture, currently Code(s): O99.820 - Streptococcus B carrier state complicating Status : Acute (5) LGSIL on Pap smear of cervix Code(s): R87.612 - Low grade squamous intraepithelial lesion on cytologic smear of cervix (LGSIL) Status: Acute - Plan 27-year-old status post vacuum-assisted vaginal delivery 1. Post day #1: Afebrile, vital signs stable, continue routine care. Anticipate discharge home in the next 48 hours -Male , patient states baby has hypospadias. Will defer circumcision 2. Chronic hypertension with superimposed preeclampsia: Patient has no signs or symptoms of severe disease, blood pressures are elevated hovering just below severe range, begin Procardia 30 XL daily today, patient was on lisinopril prepregnancy but controlled without medications during. We will continue to follow blood pressures and discharge once appropriate.
[2018-04-09] MEDS: Senna/Docusate Sodium 8.6/50 MG Tablet PO SCH ×2 (08:11→22:33)
[2018-04-10] MEDS: Acetaminophen 325 MG Tablet PO PRN (01:12)
--- NOTE | 2018-04-10 05:14 | P.PNOB ---
Subjective Post day: 2 Interval history: no changes from yesterday, Objective Vital Signs/I&O: Vital Signs 04/09/18 05:30 04/09/18 08:00 04/09/18 20:00 Temperature 97.9 F 97.6 F Pulse Rate 88 84 69 Respiratory Rate 20 18 Blood Pressure 153/93 H 150/95 H 153/93 H 04/10/18 00:00 Temperature 98.1 F Pulse Rate 67 Respiratory Rate 18 Blood Pressure 150/94 H Result Diagrams: 04/09/18 04:50 04/07/18 11:30 Objective Remarks: GENERAL: Well-nourished, well-developed patient. CARDIOVASCULAR: Regular rate and rhythm without murmurs, gallops, or rubs. RESPIRATORY: Breath sounds equal bilaterally. No accessory muscle use. ABDOMEN/GI: Abdomen soft, non-tender. Fundus: Firm, non-tender at umbilicus. GENITOURINARY: Light to moderate bleeding. EXTREMITIES: No cyanosis or edema, non-tender, without signs of DVT. Medications and IVs: Active Medications Acetaminophen (Tylenol) 650 mg PO Q4H PRN PRN Reason: PAIN SCALE 1 TO 2 Last Admin: 04/10/18 01:12 Dose: 650 mg Al Hydroxide/Mg Hydroxide (Milk Of Magnesia Liq) 30 ml PO Q12H PRN PRN Reason: Mild Constipation Benzocaine (Americaine 20% Top [place]) 1 spray TOPICAL Q4H PRN PRN Reason: For Perineum Discomfort Last Admin: 04/08/18 22:42 Dose: 1 spray Bisacodyl (Dulcolax Supp) 10 mg RECTAL DAILY PRN PRN Reason: SEVERE CONSITIPATION Citric Acid/Sodium Citrate (Sodium Citrate/Citric Acid Liq) 30 ml PO [facility] Stop: 04/11/18 11:14 Fentanyl Citrate (Fentanyl Inj) 50 mcg IV.PUSH Q1H PRN PRN Reason: Pain Scale 3 - 5 Last Admin: 04/07/18 22:42 Dose: 50 mcg Fentanyl Citrate (Fentanyl Inj) 100 mcg IV.PUSH Q1H PRN PRN Reason: PAIN SCALE 6 TO 10 Last Admin: 04/08/18 04:56 Dose: 100 mcg Lactated Ringer's (Lr 1000 Ml Inj) 1,000 mls @ 125 mls/hr IV.CONT .Q8H [facility] Last Admin: 04/09/18 22:38 Dose: Not Given Lactated Ringer's (Lr 1000 Ml Inj) 1,000 mls @ 3,000 mls/hr IV.SIG UNSCH PRN PRN Reason: compromise or epidural Last Admin: 04/08/18 07:34 Dose: 3,000 mls/hr Sodium Chloride (Ns Inj) 500 mls @ 1,000 mls/hr IV.SIG UNSCH PRN PRN Reason: SEE LABEL COMMENTS Sodium Chloride (Ns Inj) 1,000 mls @ 100 mls/hr IV.CONT .Q10H PRN PRN Reason: SEE LABEL COMMENTS Penicillin G Potassium 2,500, (000 unit/ Sodium Chloride) 100 mls @ 200 mls/hr IV.SIG Q4H [facility] Last Admin: 04/08/18 11:27 Dose: 200 mls/hr Fentanyl/Bupivacaine/Sodium Chlor (Fentanyl 2 Mcg-Bupiv 0.125% Epi) 150 mls @ 12 mls/hr EPIDURAL PRN PRN PRN Reason: for Labor Pain Last Admin: 04/08/18 11:14 Dose: 12 mls/hr Oxytocin (Pitocin 30 Units/Ns 500 Ml Premix) 30 units in 500 mls @ 100 mls/hr IV.CONT UNSCH PRN PRN Reason: Heavy bleeding Ibuprofen (Motrin) 800 mg PO Q8H PRN PRN Reason: For Cramping Last Admin: 04/10/18 01:13 Dose: 800 mg Lactulose (Lactulose Liq) 30 ml PO DAILY PRN PRN Reason: SEVERE CONSITIPATION Lidocaine HCl (Xylocaine 1% Inj) 0.1 ml I-DERMAL PRN PRN PRN Reason: For IV start Stop: 04/10/18 11:05 Mineral Oil (Muri-Lube Oil) 10 ml TOPICAL PRN PRN PRN Reason: PRN perineal massage Naloxone HCl (Narcan Inj) 0.1 mg IV.PUSH Q2M PRN PRN Reason: for opiate reversal Naloxone HCl (Narcan Inj) 0.1 mg IV.PUSH Q2M PRN PRN Reason: for opiate reversal Nifedipine (Procardia Xl) 30 mg PO DAILY [facility] Last Admin: 04/09/18 08:12 Dose: 30 mg Ondansetron HCl (Zofran Odt) 4 mg PO Q6H PRN PRN Reason: NAUSEA OR VOMITING Senna/Docusate Sodium (Lillian-Colace) 1 tab PO BID [facility] Last Admin: 04/09/18 22:33 Dose: Not Given Sennosides (Senokot) 17.2 mg PO Q12H PRN PRN Reason: Moderate Constipation Sodium Chloride (Ns Flush) 2 ml IV.FLUSH BID [facility] Last Admin: 04/09/18 22:33 Dose: 2 ml Sodium Chloride (Ns Flush) 2 ml IV.FLUSH PRN PRN PRN Reason: FLUSH AFTER USING IV ACCESS Witch Klaudia/Glycerin (Tucks Pads) 1 applicatio RECTAL QID PRN PRN Reason: HEMORRHOIDS Last Admin: 04/08/18 22:42 Dose: 1 applicatio Zolpidem Tartrate (Ambien) 5 mg PO HS PRN PRN Reason: SLEEP Assessment and Plan - Diagnosis (1) Pre-eclampsia superimposed on chronic hypertension Code(s): O11.9 - Pre-existing hypertension with pre-eclampsia, unspecified trimester Status: Acute (2) Obesity (BMI 35.0-39.9 without comorbidity) Code(s): E66.9 - Obesity, unspecified Status: Acute (3) Rubella non-immune status, antepartum Code(s): O99.89 - Other specified diseases and conditions complicating , childbirth and the puerperium; Z28.3 - Underimmunization status Status: Acute (4) GBS (group B Streptococcus carrier), +RV culture, currently Code(s): O99.820 - Streptococcus B carrier state complicating Status : Acute (5) LGSIL on Pap smear of cervix Code(s): R87.612 - Low grade squamous intraepithelial lesion on cytologic smear of cervix (LGSIL) Status: Acute - Plan 27-year-old status post vacuum-assisted vaginal delivery 1. Post day #2: AF, d/c home if BP controlled today -Male , patient states baby has hypospadias. Will defer circumcision 2. Chronic hypertension with superimposed preeclampsia: Patient has no signs or symptoms of severe disease, blood pressures only recorded 1x over past 24hrs and was above goal, increase Procardia to 60XL qd and monitor throughout today, d/c home if controlled.
[2018-04-10] MEDS: Senna/Docusate Sodium 8.6/50 MG Tablet PO SCH ×2 (08:27→22:15)
[2018-04-10] MEDS ORDERED: NIFEdipine 10 MG Capsule PO ONE (11:15)
[2018-04-10] MEDS ORDERED: NIFEdipine 10 MG Capsule PO PRN (12:04)
--- NOTE | 2018-04-10 12:10 | P.OBGPN ---
received call from nursing that pts BP was 160 systolic and then again above 160 on repeat 15 minutes later, pt doesed with 10mg PO Procardia and then was in 150s systolic 20 min after procardia given. Will give 1 dosee of lasix and add additional PM dose of Procardia XL
[2018-04-10] MEDS ORDERED: Furosemide 20 MG Tablet PO ONE (13:30)
[2018-04-11] MEDS: Acetaminophen 325 MG Tablet PO PRN (02:17)
[2018-04-11] MEDS: Senna/Docusate Sodium 8.6/50 MG Tablet PO SCH (08:42)
--- NOTE | 2018-04-11 09:04 | P.PNOB ---
Subjective Post day: 3 Interval history: doing well, no changes from yesterday Objective Vital Signs/I&O: Vital Signs 04/10/18 10:00 04/10/18 10:54 04/10/18 11:45 Temperature Pulse Rate 85 93 H Respiratory Rate 18 Blood Pressure 160/96 H 165/98 H 152/92 H 04/10/18 14:00 04/10/18 16:00 04/10/18 20:00 Temperature 97.8 F Pulse Rate 91 H 91 H 100 H Respiratory Rate 18 Blood Pressure 136/78 143/84 H 142/85 H 04/10/18 22:00 04/11/18 00:00 04/11/18 02:00 Temperature 98.2 F Pulse Rate 76 108 H 108 H Respiratory Rate 18 18 20 Blood Pressure 156/89 H 144/91 H 151/91 H 04/11/18 04:00 04/11/18 06:00 04/11/18 08:42 Temperature 98.4 F Pulse Rate 109 H 89 87 Respiratory Rate 20 18 Blood Pressure 136/86 150/90 H 139/97 H Result Diagrams: 04/09/18 04:50 04/07/18 11:30 Objective Remarks: GENERAL: Well-nourished, well-developed patient. CARDIOVASCULAR: Regular rate and rhythm without murmurs, gallops, or rubs. RESPIRATORY: Breath sounds equal bilaterally. No accessory muscle use. ABDOMEN/GI: Abdomen soft, non-tender. Fundus: Firm, non-tender at umbilicus. GENITOURINARY: Light to moderate bleeding. EXTREMITIES: No cyanosis or edema, non-tender, without signs of DVT. Medications and IVs: Active Medications Acetaminophen (Tylenol) 650 mg PO Q4H PRN PRN Reason: PAIN SCALE 1 TO 2 Last Admin: 04/11/18 02:17 Dose: 650 mg Al Hydroxide/Mg Hydroxide (Milk Of Magnesia Liq) 30 ml PO Q12H PRN PRN Reason: Mild Constipation Benzocaine (Americaine 20% Top [place]) 1 spray TOPICAL Q4H PRN PRN Reason: For Perineum Discomfort Last Admin: 04/08/18 22:42 Dose: 1 spray Bisacodyl (Dulcolax Supp) 10 mg RECTAL DAILY PRN PRN Reason: SEVERE CONSITIPATION Citric Acid/Sodium Citrate (Sodium Citrate/Citric Acid Liq) 30 ml PO [employer] [facility] Stop: 04/11/18 11:14 Fentanyl Citrate (Fentanyl Inj) 50 mcg IV.PUSH Q1H PRN PRN Reason: Pain Scale 3 - 5 Last Admin: 04/07/18 22:42 Dose: 50 mcg Fentanyl Citrate (Fentanyl Inj) 100 mcg IV.PUSH Q1H PRN PRN Reason: PAIN SCALE 6 TO 10 Last Admin: 04/08/18 04:56 Dose: 100 mcg Lactated Ringer's (Lr 1000 Ml Inj) 1,000 mls @ 125 mls/hr IV.CONT .Q8H [facility] Last Admin: 04/11/18 08:32 Dose: Not Given Lactated Ringer's (Lr 1000 Ml Inj) 1,000 mls @ 3,000 mls/hr IV.SIG UNSCH PRN PRN Reason: compromise or epidural Last Admin: 04/08/18 07:34 Dose: 3,000 mls/hr Sodium Chloride (Ns Inj) 500 mls @ 1,000 mls/hr IV.SIG UNSCH PRN PRN Reason: SEE LABEL COMMENTS Sodium Chloride (Ns Inj) 1,000 mls @ 100 mls/hr IV.CONT .Q10H PRN PRN Reason: SEE LABEL COMMENTS Fentanyl/Bupivacaine/Sodium Chlor (Fentanyl 2 Mcg-Bupiv 0.125% Epi) 150 mls @ 12 mls/hr EPIDURAL PRN PRN PRN Reason: for Labor Pain Last Admin: 04/08/18 11:14 Dose: 12 mls/hr Oxytocin (Pitocin 30 Units/Ns 500 Ml Premix) 30 units in 500 mls @ 100 mls/hr IV.CONT UNSCH PRN PRN Reason: Heavy bleeding Ibuprofen (Motrin) 800 mg PO Q8H PRN PRN Reason: For Cramping Last Admin: 04/11/18 02:17 Dose: 800 mg Lactulose (Lactulose Liq) 30 ml PO DAILY PRN PRN Reason: SEVERE CONSITIPATION Mineral Oil (Muri-Lube Oil) 10 ml TOPICAL PRN PRN PRN Reason: PRN perineal massage Naloxone HCl (Narcan Inj) 0.1 mg IV.PUSH Q2M PRN PRN Reason: for opiate reversal Nifedipine (Procardia) 10 mg PO NOW PRN PRN Reason: SEE LABEL COMMENTS Nifedipine (Procardia) 20 mg PO NOW PRN PRN Reason: SEE LABEL COMMENTS Nifedipine (Procardia) 20 mg PO NOW PRN PRN Reason: SEE LABEL COMMENTS Nifedipine (Procardia Xl) 30 mg PO DAILY@1700 [facility] Last Admin: 04/10/18 17:23 Dose: 30 mg Ondansetron HCl (Zofran Odt) 4 mg PO Q6H PRN PRN Reason: NAUSEA OR VOMITING Senna/Docusate Sodium (Lillian-Colace) 1 tab PO BID [facility] Last Admin: 04/11/18 08:42 Dose: Not Given Sennosides (Senokot) 17.2 mg PO Q12H PRN PRN Reason: Moderate Constipation Sodium Chloride (Ns Flush) 2 ml IV.FLUSH BID [facility] Last Admin: 04/11/18 08:42 Dose: Not Given Sodium Chloride (Ns Flush) 2 ml IV.FLUSH PRN PRN PRN Reason: FLUSH AFTER USING IV ACCESS Witch Klaudia/Glycerin (Tucks Pads) 1 applicatio RECTAL QID PRN PRN Reason: HEMORRHOIDS Last Admin: 04/08/18 22:42 Dose: 1 applicatio Zolpidem Tartrate (Ambien) 5 mg PO HS PRN PRN Reason: SLEEP Assessment and Plan - Diagnosis (1) Pre-eclampsia superimposed on chronic hypertension Code(s): O11.9 - Pre-existing hypertension with pre-eclampsia, unspecified trimester Status: Acute (2) Obesity (BMI 35.0-39.9 without comorbidity) Code(s): E66.9 - Obesity, unspecified Status: Acute (3) Rubella non-immune status, antepartum Code(s): O99.89 - Other specified diseases and conditions complicating , childbirth and the puerperium; Z28.3 - Underimmunization status Status: Acute (4) GBS (group B Streptococcus carrier), +RV culture, currently Code(s): O99.820 - Streptococcus B carrier state complicating Status : Acute (5) LGSIL on Pap smear of cervix Code(s): R87.612 - Low grade squamous intraepithelial lesion on cytologic smear of cervix (LGSIL) Status: Acute - Plan 27-year-old status post vacuum-assisted vaginal delivery 1. Post day #3: AF, d/c home -Male , patient states baby has hypospadias. Will defer circumcision 2. Chronic hypertension with superimposed preeclampsia: Patient has no signs or symptoms of severe disease, blood pressures better controlled yesterday, will d/c home on Procardia xl 60mg AM and 30mg PM, discussed preeclampsia precautions and to check BP daily, FU 1 week in office.
== END 2018-04-11 11:07 | disposition home or self-care (01) | DRG 807 ==
LOC: H2E 10:24 → H1EA 04-08 15:23
PROVIDERS: ADMIT Obstetrics & Gynecology; ATTEND Obstetrics & Gynecology
CPT/HCPCS: 59025; 80053; 80076; 81001; 82570; 84155; 84157; 84550; 85025; 86900; 86901; J2540; J2590; J3010; J7120